=== PATIENT | male | born 1970 | race Caucasian/White ===

== ENCOUNTER 2018-08-22 23:48 | Emergency (ER) | payer OTHER ==
--- NOTE | 2018-08-22 23:50 | ER Report ---
History and Physical Time Seen By MD: 23:48 HPI/ROS CHIEF COMPLAINT: Right groin pain HISTORY OF PRESENT ILLNESS: 48-year-old male presents with concerns over right groin pain and right lower abdominal pain. Patient underwent angioplasty on Mo at [facility] in [place], [place]. Patient states he had angioplasty in 2 areas [place], peripheral vascular disease of his right lower extremity. He has a nonhealing heel ulcer. Patient notes that he has normal bruising in his lower abdomen and in his suprapubic area. It is not hard or indurated. Patient notes no trauma, fever or chills. He is on aspirin and Plavix as prescribed by his doctors. She notes no change in bowel habits. He notes no nausea or vomiting. He is a type II diabetic with insulin required. Patient's concerned that his pain is getting worse each day in the right lower quadrant and groin area. He thinks it may be swollen. REVIEW OF SYSTEMS: Respiratory: No cough, no dyspnea. Cardiovascular: No chest pain, no palpitations. Gastrointestinal: As above Musculoskeletal: No back pain. Allergies: Coded Allergies: glipizide (Verified Allergy, Unknown, 08/23/18) lisinopril (Verified Allergy, Unknown, RASH, 08/23/18) Home Meds Active Scripts Hydrocodone Bit/Acetaminophen (HYDROCODON-ACETAMINOPHEN 5-325) 1 Each Tablet, 1 EACH PO Q4-6H PRN for PAIN, #15 TAKE ONE TABLET BY MOUTH EVERY 4-6 HOURS NEEDED FOR PAIN Prov:LETTY JAMES DO 08/23/18 Reported Medications Rosuvastatin Calcium (CRESTOR) 20 Mg Tablet, 20 MG PO QDAY 08/23/18 Nitroglycerin (NITROGLYCERIN) 0.4 Mg Tab.subl, 0.4 MG SL Q5MIN 08/23/18 Multivitamin With Minerals (MULTIPLE VITAMIN) 1 Each Tablet, 1 EACH PO, TAB 08/23/18 Lidocaine HCl/Menthol (Lidozenpatch 4%-1%) 4 %-1 % Adh..patch, 5 PATCH 08/23/18 Insulin Lispro 100 Un/Ml Pen (HUMALOG 3 ML PEN) 100 Unit/1 Ml Insuln.pen, UNIT SQ, DIS.SYR 08/23/18 Gabapentin (GABAPENTIN) 300 Mg Capsule, 300 MG PO TID, CAPSULE 08/23/18 [place]-3S/Dha/Epa/Fish Oil (Fish Oil 1,200 mg Softgel) 720-1,200MG Capsule.dr, 1200 MG PO 08/23/18 Ergocalciferol (Vitamin D2) (Vitamin D2) 50 Mcg (2000 Unit) Capsule, 41984 UNIT PO 08/23/18 Duloxetine Hcl (CYMBALTA) 60 Mg Capsule.dr, 60 MG PO QDAY, #5 CAP 08/23/18 Ubidecarenone (COQ-10) 100 Mg Capsule, 300 MG PO, CAPSULE 08/23/18 Clopidogrel Bisulfate (CLOPIDOGREL) 75 Mg Tablet, 1 TAB PO QDAY, TAB 08/23/18 Ciclopirox Olamine (Ciclopirox) 0.77 % Suspension 08/23/18 Chlorthalidone (CHLORTHALIDONE) 25 Mg Tab, 25 MG PO, TAB 08/23/18 Carvedilol (CARVEDILOL) 25 Mg Tablet, 25 MG PO BID, #10 TAB 08/23/18 Bupropion Hcl (WELLBUTRIN XL) 150 Mg Tab.er.24h, 150 MG PO QDAY, TAB 08/23/18 Aspirin (ASPIRIN) 325 Mg Tablet, 325 MG PO QDAY, TAB 08/23/18 Acetaminophen (TYLENOL EXTRA STRENGTH) 500 Mg Tablet, 1000 MG PO PRN, TAB 08/23/18 Insulin Detemir (LEVEMIR) 100 Unit/Ml Injs, 15 UNIT SUBQ HS 08/23/18 Cholecalciferol (Vitamin D3) (VITAMIN D3) 1,000 Unit Tablet, 5000 UNIT PO BID, TAB 08/23/18 Acetylcysteine (Nac) 500 Mg Capsule, 600 MG PO BID 08/23/18 Reviewed Nurses Notes: Yes Old Medical Records Reviewed: Yes Constitutional Vital Sign - Last 24 Hours 08/22/18 08/22/18 08/23/18 08/23/18 23:52 23:55 00:18 00:28 Temp 97.6 Pulse 85 83 Resp 18 B/P (MAP) 192/109 (136) 192/109 165/92 (116) Pulse Ox 95 94 O2 Delivery Room Air 08/23/18 08/23/18 08/23/18 08/23/18 00:30 00:48 01:00 01:30 Pulse 70 68 B/P (MAP) 167/91 (116) 146/83 (104) 154/84 (107) Pulse Ox 95 08/23/18 08/23/18 01:30 02:00 Pulse 75 B/P (MAP) 154/84 (107) 152/83 (106) Pulse Ox 94 Intake and Output 08/22/18 08/22/18 08/23/18 15:01 23:01 07:01 Intake Total 1000 ml Balance 1000 ml Physical Exam General Appearance: The patient is alert, has no immediate need for airway protection and no current signs of toxicity. Vital signs stable, afebrile, pulse ox normal Eyes: Pupils equal and round no injection. Respiratory: Chest is non tender, lungs are clear to auscultation. Cardiac: regular rate and rhythm Gastrointestinal: Abdomen is soft and non tender, no masses, bowel sounds normal. There is old bruising in the right lower quadrant of the abdomen and groin area. There is no involvement of the scrotum. There is no extension into the thigh. His right foot is blue, but he received methylene blue dye as part of the study. He has intact pulses. Musculoskeletal: Neck: Neck is supple and non tender. Extremities have full range of motion and are non tender. Skin: No rashes or lesions. DIFFERENTIAL DIAGNOSIS: After history and physical exam differential diagnosis was considered for abdominal pain including but not limited to appendicitis, cholecystitis, gastritis and urinary tract infection. Additionally, hematoma, angioplasty bleeding. Medical Decision Making Data Points Result Diagram: 08/23/18 0011 08/23/18 0011 Laboratory Hematology Test 08/23/18 00:11 Red Blood Count 4.99 M/uL (4.00-5.60) Mean Corpuscular Volume 78.3 fL (80.0-96.0) Mean Corpuscular Hemoglobin 26.5 pg (26.0-33.0) Mean Corpuscular Hemoglobin Concent 33.8 g/dL (32.0-36.0) Red Cell Distribution Width 15.2 % (11.5-14.5) Mean Platelet Volume 9.2 fL (7.2-11.1) Neutrophils (%) (Auto) 64.4 % (39.4-72.5) Lymphocytes (%) (Auto) 24.6 % (17.6-49.6) Monocytes (%) (Auto) 8.7 % (4.1-12.4) Eosinophils (%) (Auto) 1.4 % (0.4-6.7) Basophils (%) (Auto) 0.9 % (0.3-1.4) Nucleated RBC Relative Count (auto) 0.0 /100WBC Neutrophils # (Auto) 5.0 K/uL (2.0-7.4) Lymphocytes # (Auto) 1.9 K/uL (1.3-3.6) Monocytes # (Auto) 0.7 K/uL (0.3-1.0) Eosinophils # (Auto) 0.1 K/uL (0.0-0.5) Basophils # (Auto) 0.1 K/uL (0.0-0.1) Nucleated RBC Absolute Count (auto) 0.00 K/uL Sodium Level 133 mmol/L (137-145) Potassium Level 3.6 mmol/L (3.5-5.0) Chloride Level 100 mmol/L (98-107) Carbon Dioxide Level 25 mmol/L (22-30) Blood Urea Nitrogen 28 mg/dl (9-21) Creatinine 1.40 mg/dl (0.66-1.25) Glomerular Filtration Rate Calc 53.9 Random Glucose 341 mg/dl (75-110) Lactate 1.3 mmol/L (0.7-2.1) Calcium Level 8.4 mg/dl (8.4-10.2) Total Bilirubin 0.4 mg/dl (0.2-1.3) Aspartate Amino Transf (AST/SGOT) 19 U/L (0-35) Alanine Aminotransferase (ALT/SGPT) 30 U/L (0-56) Alkaline Phosphatase 98 U/L (0-126) Total Protein 6.3 g/dl (6.3-8.2) Albumin 3.3 g/dl (3.5-5.0) Chemistry Test 08/23/18 00:11 White Blood Count 7.7 k/uL (4.5-11.0) Red Blood Count 4.99 M/uL (4.00-5.60) Hemoglobin 13.2 g/dL (14.0-18.0) Hematocrit 39.1 % (42.0-52.0) Mean Corpuscular Volume 78.3 fL (80.0-96.0) Mean Corpuscular Hemoglobin 26.5 pg (26.0-33.0) Mean Corpuscular Hemoglobin Concent 33.8 g/dL (32.0-36.0) Red Cell Distribution Width 15.2 % (11.5-14.5) Platelet Count 260 K/uL (150-450) Mean Platelet Volume 9.2 fL (7.2-11.1) Neutrophils (%) (Auto) 64.4 % (39.4-72.5) Lymphocytes (%) (Auto) 24.6 % (17.6-49.6) Monocytes (%) (Auto) 8.7 % (4.1-12.4) Eosinophils (%) (Auto) 1.4 % (0.4-6.7) Basophils (%) (Auto) 0.9 % (0.3-1.4) Nucleated RBC Relative Count (auto) 0.0 /100WBC Neutrophils # (Auto) 5.0 K/uL (2.0-7.4) Lymphocytes # (Auto) 1.9 K/uL (1.3-3.6) Monocytes # (Auto) 0.7 K/uL (0.3-1.0) Eosinophils # (Auto) 0.1 K/uL (0.0-0.5) Basophils # (Auto) 0.1 K/uL (0.0-0.1) Nucleated RBC Absolute Count (auto) 0.00 K/uL Glomerular Filtration Rate Calc 53.9 Lactate 1.3 mmol/L (0.7-2.1) Calcium Level 8.4 mg/dl (8.4-10.2) Total Bilirubin 0.4 mg/dl (0.2-1.3) Aspartate Amino Transf (AST/SGOT) 19 U/L (0-35) Alanine Aminotransferase (ALT/SGPT) 30 U/L (0-56) Alkaline Phosphatase 98 U/L (0-126) Total Protein 6.3 g/dl (6.3-8.2) Albumin 3.3 g/dl (3.5-5.0) EKG/Imaging Imaging Results: CT scan of the abdomen and pelvis with IV contrast with extension into the lower extremities was obtained. The results of the study are CT CTA ABDOMEN W & W/O CONTRAST HISTORY: Angioplasty 5 days ago with right lower quadrant pain. TECHNIQUE: CTA abdomen without and with contrast. 3D coronal slab MIPs and 2D reconstructions in the coronal and sagittal planes were also created. One of the following dose optimization techniques was utilized in the performance of this exam: Automated exposure control; adjustment of the mA and/or kV according to the patient's size; or use of an iterative reconstruction technique. Specific details can be referenced in the facility's radiology CT exam operational policy. CONTRAST: 75 mL Isovue-370. COMPARISON: None. FINDINGS: Vessels: Minimal atherosclerosis within the abdominal aorta which is normal in caliber. Mesenteric and renal arteries are widely patent. Common and external iliac arteries are unremarkable. Visualized lung bases: Negative. Hepatobiliary: Gallbladder is absent. Otherwise negative. Spleen: Mildly enlarged measuring 14.4 cm in diameter. Adrenals: Negative. Pancreas: Negative. Kidneys: Mild bladder distention. Otherwise negative. GI: Negative. Spaces/nodes: Mild stranding surrounding the right external iliac vessels. Bones/soft tissues: Mild thickening/hemorrhage within the inferolateral right rectus musculature. IMPRESSION: 1. No acute vascular abnormality. No pseudoaneurysm identified. 2. Mild hemorrhage surrounding the right external iliac vessels with small hematoma of the overlying inferolateral right rectus musculature, presumed related to recent angioplasty. The study was read by the radiologist. I viewed the images myself on the PACS system. ED Course/Re-evaluation Clinical Indication for ER IV: Hydration, IV Access ED Course Patient was admitted to an examination room. H&P was done. The differential diagnoses was considered. Patient with severe right groin pain and right lower abdominal pain. Patient underwent angioplasty. He has significant edema of his right lower extremity. I'm concerned about a thrombus in the venous system. He has intact pulses in the right lower extremity. I IV was established. He was rehydrated with normal saline 1 L. He was medicated with Zofran 4 mg and fentanyl 100 g IV. Patient's diagnostic studies were unremarkable. He CT angiogram showed no acute pathology. There is a residual hematoma. There is likely the cause of his pain. Patient's advised to apply ice packs or heating pad to the affected area. He is given a limited supply of Lortab for temporary pain relief. He is advised to contact his vascular surgeon on Friday morning for urgent follow-up. Patient states he has an appointment scheduled for Friday, the following week. Decision to Disposition Date: Aug 23, 2018 Decision to Disposition Time: 02:16 Depart Departure Latest Vital Signs Vital Signs Date Time Temp Pulse Resp B/P (MAP) Pulse Ox O2 Delivery O2 Flow Rate FiO2 08/23/18 02:00 75 152/83 (106) 94 08/22/18 23:55 97.6 18 Room Air Impression: Primary Impression: Right groin pain Additional Impressions: H/O angioplasty Insulin dependent diabetes mellitus Hematoma following angiography Condition: Improved Disposition: HOME OR SELF-CARE New Scripts Hydrocodone Bit/Acetaminophen (HYDROCODON-ACETAMINOPHEN 5-325) 1 Each Tablet 1 EACH PO Q4-6H PRN for PAIN, #15 TAKE ONE TABLET BY MOUTH EVERY 4-6 HOURS NEEDED FOR PAIN Prov: LETTY JAMES DO 08/23/18 Patient Instructions: Groin Pain (ED) Additional Instructions: Follow-up with your doctor that performed the angioplasty early next week Problem Qualifiers LETTY JAMES DO Aug 22, 2018 23:50
[2018-08-22] MEDS ORDERED: NS(*) 0.9% 1000 ML BAG 1,000 ML IV ONE (23:59)
[2018-08-23] MEDS ORDERED: fentaNYL CITR 100 MCG/2 ML AMP IVP ONE
[2018-08-23] MEDS ORDERED: ONDANSETRON 4 MG/2 ML VIAL IVP ONE
[2018-08-23] MEDS ORDERED: NS(*) 0.9% 50 ML BAG 50 ML ONE (00:21)
[2018-08-23] MEDS ORDERED: IOPAMIDOL 76% 100 ML INFUS BTL 100 ML ONE (00:21)
[2018-08-23 00:43] LABS: PLATELET COUNT, AUTOMATED 260 K/uL (150-450)
[2018-08-23] MEDS ORDERED: INS HUM LISPRO 100U/ML (ER ONLY) 10 ML VIAL SUBQ ONE (00:55)
[2018-08-23] MEDS ORDERED: INSULIN DETEMIR 100 UN/ML VIAL SUBQ PRN (00:55)
[2018-08-23] MEDS ORDERED: INSULIN DETEMIR 100 U/ML 3 ML PEN ONE (01:17)
[2018-08-23] MEDS ORDERED: INSULIN DETEMIR 100 U/ML 3 ML PEN SUBQ SCH (01:25)
[2018-08-23 02:00] VITALS: BP 152/83
--- NOTE | 2018-08-23 02:13 | RADIOLOGY IMAGING REPORT ---
FACILITY: [facility] PATIENT NAME: Shannon Fagan : 1970 MR: [id number] V: [id number] EXAM DATE: ORDERING PHYSICIAN: LETTY JAMES TECHNOLOGIST: Location: [facility] Patient: Shannon Fagan : 1970 Visit/Account:[id number] Date of Sevice: 08/22/2018 CT CTA ABDOMEN W & W/O CONTRAST HISTORY: Angioplasty 5 days ago with right lower quadrant pain. TECHNIQUE: CTA abdomen without and with contrast. 3D coronal slab MIPs and 2D reconstructions in the coronal and sagittal planes were also created. One of the following dose optimization techniques was utilized in the performance of this exam: Autom ated exposure control; adjustment of the mA and/or kV according to the patient's size; or use of an i terative reconstruction technique. Specific details can be referenced in the facility's radiology CT exam operational policy. CONTRAST: 75 mL Isovue-370. COMPARISON: None. FINDINGS: Vessels: Minimal atherosclerosis within the abdominal aorta which is normal in caliber. Mesenteric a nd renal arteries are widely patent. Common and external iliac arteries are unremarkable. Visualized lung bases: Negative. Hepatobiliary: Gallbladder is absent. Otherwise negative. Spleen: Mildly enlarged measuring 14.4 cm in diameter. Adrenals: Negative. Pancreas: Negative. Kidneys: Mild bladder distention. Otherwise negative. GI: Negative. Spaces/nodes: Mild stranding surrounding the right external iliac vessels. Bones/soft tissues: Mild thickening/hemorrhage within the inferolateral right rectus musculature. IMPRESSION: 1. No acute vascular abnormality. No pseudoaneurysm identified. 2. Mild hemorrhage surrounding the right external iliac vessels with small hematoma of the overlying inferolateral right rectus musculature, presumed related to recent angioplasty. Report Dictated By: Ramiro Thompson MD at 08/23/2018 2:03 AM Report E-Signed By: Ramiro Thompson MD at 08/23/2018 2:08 AM WSN:[id number]
[2018-08-23] MEDS ORDERED: LOR5/325 PO (02:18)
[2018-08-23] MEDS ORDERED: ACET/HYDROC 5/325MG TH ER ONLY 2 TAB/BOTTLE PO ONE (02:20)
[2018-08-23] MEDS ORDERED: ASPI-757 PO (05:10)
[2018-08-23] MEDS ORDERED: UBID100C48 PO (05:10)
[2018-08-23] MEDS ORDERED: CHLOR25 PO (05:10)
[2018-08-23] MEDS ORDERED: CHOL10005 PO (05:10)
[2018-08-23] MEDS ORDERED: NITR0.4T3 SL (05:10)
[2018-08-23] MEDS ORDERED: [UNRECOGNIZED DRUG - CODE] (05:10)
[2018-08-23] MEDS ORDERED: ACET500C PO (05:10)
[2018-08-23] MEDS ORDERED: LIDO1ADH (05:10)
[2018-08-23] MEDS ORDERED: ERGO50CA PO (05:10)
[2018-08-23] MEDS ORDERED: GABA-549 PO (05:10)
[2018-08-23] MEDS ORDERED: CLOP75TA PO (05:10)
[2018-08-23] MEDS ORDERED: OMEG-177 PO (05:10)
[2018-08-23] MEDS ORDERED: LEVI SUBQ (05:10)
[2018-08-23] MEDS ORDERED: ROSU20TA24 PO (05:10)
[2018-08-23] MEDS ORDERED: MULT-1335 PO (05:10)
[2018-08-23] MEDS ORDERED: DULO60CA56 PO (05:10)
[2018-08-23] MEDS ORDERED: INSU100I28 SQ (05:10)
[2018-08-23] MEDS ORDERED: CARV25TA78 PO (05:10)
[2018-08-23] MEDS ORDERED: ACET500T68 PO (05:10)
[2018-08-23] MEDS ORDERED: BUPR-472 PO (05:10)
== END 2018-08-23 02:30 | disposition home or self-care (01) ==
LOC: ER 08-23 00:15
DX: R10.31 Right lower quadrant pain (principal); E11.9 Type 2 diabetes mellitus without complications; Z79.4 Long term (current) use of insulin; Z98.890 Other specified postprocedural states
CPT/HCPCS: 74174; 83605; 85025; 87040; 96361; 96372; 96374; 96375; 99284; J1815; J2405; J3010; J7030; J7050; Q9967; 82040; 82247; 82310; 82374; 82435; 82565; 82947; 84075; 84132; 84155; 84295; 84450; 84460; 84520